=== PATIENT | female | born 1990 | race American Indian/Alaskan Native ===

== ENCOUNTER 2018-01-31 19:30 | Inpatient (IN) | payer MEDICAID, OTHER ==
[2018-01-31 21:03] LABS: BASO # 0.06 K/mm3 (0.0-2.0); BASO % 1.1 % (0.0-3.0); EOS # 0.4 (0.0-0.7); EOS % 7.6 % (1.5-5.0); GRAN # 2.48 (1.4-6.5); GRAN % 43.9 % (50.0-68.0); HEMOGLOBIN 11.8 g/dL (12.0-16.0); LYMPH # 2.1 (1.2-3.4); LYMPH % 36.9 % (22.0-35.0); MEAN CORPUSCULAR HEMOGLOBIN 29.6 pg (25.0-35.0); MONO # 0.6 (0.1-0.6); MONO % 10.5 % (1.0-6.0); RBC 3.99 10^6/uL (3.5-6.1); RED CELL DISTRIBUTION WIDTH 14.8 % (11.5-14.5); WHITE BLOOD COUNT 5.6 10^3/ul (4.5-11.0)
[2018-01-31 21:14] LABS: ACETAMINOPHEN < 10.0 ug/ml (10.0-20.0); SALICYLATE < 1 mg/dL (2.0-20.0)
[2018-01-31 21:16] LABS: ALB/GLOB RATIO 0.9 (1.1-1.8); ALBUMIN 3.5 g/dL (3.0-4.8); ALT/SGPT 39 U/L (7-56); AST/SGOT 32 U/L (14-36); BLOOD UREA NITROGEN 14 mg/dL (7-21); CALCIUM 8.8 mg/dL (8.4-10.5); GFR AFRICAN-AMERICAN > 60; GFR NON-AFRICAN AMERICAN > 60
--- NOTE | 2018-01-31 23:03 | ED PDOC ---
Arrival/HPI - General Chief Complaint: Psychiatric Evaluation Time Seen by Provider: 01/31/18 19:43 Historian: Patient - History of Present Illness Narrative History of Present Illness (Text): 01/31/18 23:01 27yo female with pmhx of bipolar bib EMS for psychiatric evaluation. Per EMS, patient was wandering the street without pants on and talking to herself. Patient states she was on her way from the park. States she wasn't talking to herself. She denies SI/HI, hallucination, any somatic complaint. Past Medical History - Provider Review Nursing Documentation Reviewed: Yes - Infectious Disease Hx of Infectious Diseases: None - Hematological/Oncological Other/Comment: alopecia - Integumentary Hx Eczema: Yes - Psychiatric Hx Bipolar Disorder: Yes Hx Substance Use: No - Anesthesia Hx Anesthesia: No Hx Anesthesia Reactions: No Hx Malignant Hyperthermia: No Family/Social History - Physician Review Nursing Documentation Reviewed: Yes Family/Social History: Unknown Family HX Smoking Status: Current Some Days Smoker Hx Alcohol Use: Yes Frequency of alcohol use: Socially Hx Substance Use: No Allergies/Home Meds Allergies/Adverse Reactions: Allergies pcn Allergy (Uncoded 01/31/18 19:54) RASH Review of Systems - Physician Review All systems were reviewed & negative as marked: Yes - Review of Systems Constitutional: Normal Eyes: Normal ENT: Normal Respiratory: Normal Cardiovascular: Normal Gastrointestinal: Normal Genitourinary Female: Normal Musculoskeletal: Normal Skin: Normal Neurological: Normal Endocrine: Normal Hemo/Lymphatic: Normal Psychiatric: Normal, Other (Psychiatric evaluation) Physical Exam Vital Signs Reviewed: Yes Vital Signs Temp Pulse Resp BP Pulse Ox 01/31/18 19:39 98.1 F 101 H 19 142/72 97 Temperature: Afebrile Blood Pressure: Normal Pulse: Regular Respiratory Rate: Normal Appearance: Positive for: Well-Appearing, Non-Toxic, Comfortable, Unkept Pain Distress: None Mental Status: Positive for: Alert and Oriented X 3 - Systems Exam Head: Present: Atraumatic, Normocephalic Pupils: Present: PERRL Extroacular Muscles: Present: EOMI Conjunctiva: Present: Normal Mouth: Present: Moist Mucous Membranes Neck: Present: Normal Range of Motion Respiratory/Chest: Present: Clear to Auscultation, Good Air Exchange. No: Respiratory Distress, Accessory Muscle Use Cardiovascular: Present: Regular Rate and Rhythm, Normal S1, S2. No: Murmurs Abdomen: No: Tenderness, Distention, Peritoneal Signs Back: Present: Normal Inspection Upper Extremity: Present: Normal Inspection. No: Cyanosis, Edema Lower Extremity: Present: Normal Inspection. No: Edema Neurological: Present: GCS=15, CN II-XII Intact, Speech Normal Skin: Present: Warm, Dry, Normal Color. No: Rashes Psychiatric: Present: Alert, Oriented x 3, Normal Insight, Normal Concentration Medical Decision Making ED Course and Treatment: 02/01/18 00:59 PT was calm in ED. She was hemodynamically stable. Medically cleared in ED for psych evaluation. EKG NSR @91bpm CXR NAD She was seen in ED by JUNIOR Barr. He DC with the psychiatrist and pt was admitted for bipolar. - Lab Interpretations Lab Results: 01/31/18 20:50 01/31/18 20:50 Lab Results 01/31/18 20:50: Alcohol, Quantitative < 10 01/31/18 20:50: Salicylates < 1 L, Acetaminophen < 10.0 L 01/31/18 20:50: Sodium 143, Potassium 4.0, Chloride 108 H, Carbon Dioxide 26, Anion Gap 13, BUN 14, Creatinine 0.7, Est GFR ( Amer) > 60, Est GFR (Non- Af Amer) > 60, Random Glucose 85, Calcium 8.8, Magnesium 2.3 H, Total Bilirubin 0.5, AST 32, ALT 39, Alkaline Phosphatase 61, Total Protein 7.3, Albumin 3.5, Globulin 3.7, Albumin/Globulin Ratio 0.9 L 01/31/18 20:50: WBC 5.6, RBC 3.99, Hgb 11.8 L, Hct 34.7 L, MCV 87.0, MCH 29.6, MCHC 34.0, RDW 14.8 H, Plt Count 264, MPV 10.0, Gran % 43.9 L, Lymph % (Auto) 36.9 H, Jennings % (Auto) 10.5 H, Eos % (Auto) 7.6 H, Baso % (Auto) 1.1, Gran # 2.48 , Lymph # (Auto) 2.1, [place] # (Auto) 0.6, Eos # (Auto) 0.4, Baso # (Auto) 0.06 Disposition/Present on Arrival - Present on Arrival Any Indicators Present on Arrival: No History of DVT/PE: No History of Uncontrolled Diabetes: No Urinary Catheter: No History of Decub. Ulcer: No History Surgical Site Infection Following: None - Disposition Have Diagnosis and Disposition been Completed?: Yes Diagnosis: Bipolar 1 disorder Disposition: HOSPITALIZED Disposition Time: 23:55 Patient Plan: Admission Patient Problems: Current Active Problems Problem Status Onset Bipolar 1 disorder Acute Condition: STABLE
[2018-02-01 01:34] LABS: URINE BILIRUBIN NEGATIVE (NEGATIVE); URINE BLOOD NEGATIVE (NEGATIVE); URINE GLUCOSE (UA) NEGATIVE (NEGATIVE); URINE LEUKOCYTE ESTERASE SMALL Leu/uL (NEGATIVE); URINE PROTEIN NEGATIVE mg/dL (<30 mg/dL); URINE UROBILINOGEN 0.2 E.U./dL (<1 E.U./dL)
[2018-02-01 01:37] LABS: URINE APPEARANCE CLOUDY (CLEAR); URINE COLOR YELLOW (YELLOW)
[2018-02-01 01:46] LABS: BARBITURATES, UR NEGATIVE (NEGATIVE)
[2018-02-01 02:07] LABS: BENZODIAZEPINES, UR NEGATIVE (NEGATIVE); OPIATES, UR NEGATIVE (NEGATIVE); PHENCYCLIDINE, UR NEGATIVE (NEGATIVE)
[2018-02-01 02:08] LABS: URINE BACTERIA MANY (NEG); URINE CALCIUM OXALATE CRYSTALS LARGE /hpf
[2018-02-01 03:44] VITALS: O2SAT 99
[2018-02-01] MEDS ORDERED: Magnesium Hydroxide Susp 30 ml UD PO PRN (04:24)
[2018-02-01 04:29] VITALS: RESP 20
--- NOTE | 2018-02-01 05:10 | PCM.BM ---
<Ghazal Bee - Last Filed: 02/01/18 05:08> Treatment Plan Problems - Problems identified on initial assessmt Medication nonadherence Date Initiated: 02/01/18 Time Initiated: 03:30 Assessment reference: NA Status: Active Priority: 1 Ineffective Impulse Control Date Initiated: 02/01/18 Time Initiated: 03:30 Assessment reference: NA Status: Active Priority: 2 Altered Sleep Patterns Date Initiated: 02/01/18 Time Initiated: 03:30 Assessment reference: NA Status: Active Priority: 3 Aggitated/Aggressive Behavion Date Initiated: 02/01/18 Time Initiated: 03:30 Assessment reference: NA Status: Active Priority: 4 Treatment assets and liabiliti Patient Assests: cooperative Patient Liabilities: financial problems, substance abuse - Milieu Protocol Maintain good personal hygiene: daily Encourage regular showers, daily Remind patient to perform daily oral care, daily Assist patient to perform ADL's Conduct patient checks and document Observation sheet: Q15 minutes Maintain personal safety: every shift Educate patient to report safety concerns to staff, every shift Monitor environment for contraband/sharps Medication safety: Monitor for expected outcome, potential side effects: every shift, Assess barriers to learning: every shift, Assess readiness for medication education: every shift Discharge/Continuing Care - Education Needs Education Needs: Patient Medication, Patient Diagnosis/Disease Process, Patient Coping Skills, Patient Community resources, Patient Health Practices/Safety, Patient Personal Hygiene/Grooming - Discharge Discharge Criteria: Tolerates medication w/o severe side effects, Free of agitation, Normal sleep pattern, Ability to care for self <Bárbara García - Last Filed: 02/01/18 12:54> - Diagnosis (1) Psychosis Status: Acute Interventions: 02/01/18 12:56 Psychoeducation/psychotherapy Psychopharmacology/adjustment of medications as needed/ monitoring possible side effects Evaluate pt on daily basis Compliance with medications and follow up appointments Long acting medication if pt is noncompliant with pill form Suicide and homicide risk assessment and prevention, coping strategies, safety plan Relapse prevention Reduction of symptoms Improve functional status Possible assertive community treatment Cognitive behavioral therapy Family involvement Possible social skill training as outpatient (2) Bipolar 1 disorder Status: Acute Interventions: 02/01/18 12:56 Psychoeducation Psychopharmacology/adjustment of medications as needed/ monitoring possible side effects Monitor blood level of mood stabilizers Evaluate pt on daily basis Compliance with medications and follow up appointments Suicide and homicide risk assessment and prevention, coping strategies, safety plan Relapse prevention Reduction of symptoms Improve functional status Family involvement As outpatient: cognitive behavioral therapy (3) Cocaine abuse Status: Acute Interventions: 02/01/18 12:55 Maintaining sobriety Relapse prevention Possible rehabilitation Motivational interviewing 12-step programs: AA meetings <Kamini Rodriguez - Last Filed: 02/01/18 15:52> Family Contact Family involvement: Famnasrin/SO not involved Family contact: Telephone contact initiated by staff Family contact name: Ella Lopez(mother) Family contacted how many times per week?: 2 <Jo-Ann Carrion - Last Filed: 02/06/18 15:49>
[2018-02-01 07:39] LABS: GLUCOSE,FASTING 71 mg/dL (65-110); HDL CHOLESTEROL 36 mg/dL (29-60)
[2018-02-01 07:52] LABS: LDL CHOLESTEROL 66 mg/dL (0-129)
--- NOTE | 2018-02-01 08:45 | RAD ---
Date of service: 02/01/2018 HISTORY: admission COMPARISON: No prior. FINDINGS: LUNGS: No active pulmonary disease. PLEURA: No significant pleural effusion identified, no pneumothorax apparent. CARDIOVASCULAR: Normal. OSSEOUS STRUCTURES: No significant abnormalities. VISUALIZED UPPER ABDOMEN: Normal. OTHER FINDINGS: None. IMPRESSION: No active disease.
--- NOTE | 2018-02-01 09:55 | PCM.PSYCH ---
<Pat Rueda - Last Filed: 02/01/18 13:16> Initial Psychiatric Evaluation - Initial Psychiatric Evaluation Type of Admission: Voluntary Legal Status: Capacity Chief Complaint (in patient's own words): I dont know ....(unintelligible speech). Patient's Reaction to Hospitalization: Patient was admitted to the psych unit for evaluation of bizarre behavior, including wandering the streets without pants or underwear and talking to herself. History of Present Illness and Precipitating Events: Faiza Lopez is a 27 yo female with a history of bipolar disorder who was brought to the ED by EMS for wandering the streets without pants or underwear on. According to records, the patient told the ER that she took off her pants because she was hot. She then later told the psych nurse that she removed them because she urinated in them. The patient was brought to the ED at [facility] 3 consecutive days earlier this month for bizarre behavior and was discharged each time with outpatient care. Records indicate the patient is homeless. The patient was seen in treatment team. She presents this morning very drowsy. Her speech is almost all unintelligible mumbling. The patient has her eyes closed for most of the interview. She is dressed in a hospital gown. She is bald. She is constantly scratching her arms and chest. She says its because she has eczema. She is able to state that she lives in [place] but took the bus to [place] to see a friend. She says she lives with her parents and does not see any doctors. She reports drinking a lot, the last time a few says ago. She also admits to marijuana and cocaine use, also both a few days ago. Of note, her UDS is positive for cocaine, and she appears to be in withdrawal. She denies taking any medications. Past psych hx: Bipolar disorder Patient reports one prior psych hospitalization 1-2 months ago in [place] PMH: eczema, asthma, allopecia FH: bipolar SH: Patient states she lives with parents in [place] Alcohol- a lot Marijuana Cocaine Denies tobacco use Vital Signs Temp Pulse Resp BP Pulse Ox 02/01/18 07:12 97.9 F 80 20 125/75 02/01/18 03:35 98.0 F 89 20 121/77 02/01/18 03:28 70 17 127/62 99 02/01/18 00:00 78 14 116/74 100 01/31/18 19:39 98.1 F 101 H 19 142/72 97 01/31/18 20:50 01/31/18 20:50 Lab Results 02/01/18 07:15: TSH 3rd Generation 0.37 L 02/01/18 07:15: Fasting Glucose 71, Triglycerides 83, Cholesterol 127 L, LDL Cholesterol Direct 66, HDL Cholesterol 36 02/01/18 01:10: Urine Opiates Screen Negative, Urine Methadone Screen Negative, Ur Barbiturates Screen Negative, Ur Phencyclidine Scrn Negative, Ur Amphetamines Screen Negative, U Benzodiazepines Scrn Negative, U Oth Cocaine Metabols Positive H, U Cannabinoids Screen Negative 02/01/18 01:10: Urine Color Yellow, Urine Appearance Cloudy, Urine pH 6.0, Ur Specific [place] >= 1.030, Urine Protein Negative, Urine Glucose (UA) Negative, Urine Ketones Trace H, Urine Blood Negative, Urine Nitrate Negative, Urine Bilirubin Negative, Urine Urobilinogen 0.2, Ur Leukocyte Esterase Small H, Urine RBC 1 - 3, Urine WBC 2 - 5, Ur Epithelial Cells 4 - 5, Calcium Oxalate Crystal Large, Urine Bacteria Many, Urine Other Mucus 01/31/18 20:50: Alcohol, Quantitative < 10 01/31/18 20:50: Salicylates < 1 L, Acetaminophen < 10.0 L 01/31/18 20:50: Sodium 143, Potassium 4.0, Chloride 108 H, Carbon Dioxide 26, Anion Gap 13, BUN 14, Creatinine 0.7, Est GFR ( Amer) > 60, Est GFR (Non- Af Amer) > 60, Random Glucose 85, Calcium 8.8, Magnesium 2.3 H, Total Bilirubin 0.5, AST 32, ALT 39, Alkaline Phosphatase 61, Total Protein 7.3, Albumin 3.5, Globulin 3.7, Albumin/Globulin Ratio 0.9 L 01/31/18 20:50: WBC 5.6, RBC 3.99, Hgb 11.8 L, Hct 34.7 L, MCV 87.0, MCH 29.6, MCHC 34.0, RDW 14.8 H, Plt Count 264, MPV 10.0, Gran % 43.9 L, Lymph % (Auto) 36.9 H, Perkins % (Auto) 10.5 H, Eos % (Auto) 7.6 H, Baso % (Auto) 1.1, Gran # 2.48 , Lymph # (Auto) 2.1, Perkins # (Auto) 0.6, Eos # (Auto) 0.4, Baso # (Auto) 0.06 Current Medications: Patient denies taking any medications. Active Medications Generic Name Dose Route Start Last Admin Trade Name Freq PRN Reason Stop Dose Admin Acetaminophen 650 mg 02/01/18 04:24 Tylenol 325mg Tab PO Q4 PRN Pain, moderate (4-7) Al Hydrox/Mg Hydrox/Simethicone 30 ml 02/01/18 04:24 Maalox Plus 30 Ml PO DAILY PRN Upset Stomach Lorazepam 2 mg 02/01/18 03:37 02/01/18 04:05 Ativan PO 2 mg Q6 PRN Administration anxiety, psychosis Protocol Lorazepam 2 mg 02/01/18 03:37 Ativan IM Q6 PRN severe agitation Protocol Magnesium Hydroxide 30 ml 02/01/18 04:24 Milk Of Magnesia PO DAILY PRN Constipation Ziprasidone 20 mg 02/01/18 03:37 02/01/18 04:05 Geodon Cap PO 20 mg Q6 PRN Administration anxiety, psychosis Protocol Ziprasidone 20 mg 02/01/18 03:37 Geodon Inj IM Q6 PRN severe agitation Protocol Zolpidem Tartrate 5 mg 02/01/18 03:37 Ambien PO HS PRN Insomnia Protocol Past Psychiatric History - Past Psychiatric History Prior Professional Help: unknown History of Abuse: unknown History of ETOH/Drug Use: alcohol, marijuana, cocaine History of Family Illness: unknown Pertinent Medical Hx (Current Medical&Sleep Prob, Allergies): Allergies Allergy/AdvReac Type Severity Reaction Status Date / Time Penicillins Allergy Verified 01/22/18 08:38 pcn Allergy RASH Uncoded 02/01/18 03:43 seafood Allergy RASH Uncoded 02/01/18 04:18 Albuterol HFA [Ventolin HFA 90 mcg/actuation (8 g)] 2 puff IH [id number] PRN #1 bottle 01/22/18 Docusate Sodium [Stool Softener] 100 mg PO PRN PRN 02/01/18 Polyvinyl Alcohol [Liquitears] 1 drop BOTHEYES DAILY 02/01/18 asthma Review of Systems - Review of Systems Systems not reviewed;Unavailable: Acuity of Condition - EENT Eyes: As Per HPI Ears: As Per HPI Nose/Mouth/Throat: As Per HPI - Cardiovascular Cardiovascular: As Per HPI - Respiratory Respiratory: As Per HPI - Gastrointestinal Gastrointestinal: As Per HPI - Genitourinary Genitourinary: As Per HPI - Musculoskeletal Musculoskeletal: As Par HPI - Integumentary Integumentary: As Per HPI - Neurological Neurological: As Per HPI - Psychiatric Psychiatric: As Per HPI - Endocrine Endocrine: As Per HPI - Hematologic/Lymphatic Hematologic: As Per HPI Mental Status Examination - Personal Presentation Personal Presentation: Looks older than stated age - Affect Affect: Blunted - Motor Activity Motor Activity: Calm, Psychomotor Retardation - Reliability in Providing Information Reliability in Providing Information: Poor, due to alteration in thoughts - Speech Speech: Disorganized, Incoherent - Mood Mood: Other ((unintelligible)) - Formal Thought Process Formal Thought Process: Other (concrete) - Obsessions/Compulsions Obsessions: No Compulsions: No - Cognitive Functions Orientation: Person, Place, Time Sensorium: Drowsy Attention/Concentration: Easily distracted Abstract Thinking: [place] Estimate of Intelligence: Below average Judgement: Imparied, as evidence by: Poor judgement, Imparied, as evidence by: Lack of insight into illness Memory: Recent impaired, as evidence by: Inability to recall events of the day, Remote impaired as evidenced by: Inability to recall sig life events - Risk Risk: Withdrawal (cocaine) - Strength & Assets Inventory Strength & Assets Inventory: Family support (?parents) - Limitations Additional comments: homelessness, poor historian, polysubstance us, untreated mental illness DSM 5 DX - DSM 5 DSM 5 Diagnosis: Bipolar disorder Alcohol use disorder Cocaine use disorder - r/o substance-induced psychosis (cocaine) - r/o schizophrenia - r/o schizoaffective - r/o catatonia - Recommended/Plan of Treatment Treatment Recommendations and Plan of Treatment: 1. Risperdal 0.5 mg bid for psychosis 2. Ativan 0.5 mg bid for catatonic symptoms 3. Ativan 2 mg q6hrs prn for agitation/psychosis 4. Geodon 20 mg q6hrs for agitation/psychosis 5. Ambien 5 mg prn qhs 6. Hospitalist consult for eczema and asthma 7. Milieu and group therapy 8. Social work consult for social issues and discharge planning 9. Family involvement (?parents) Attempted to educate the patient about risk/benefits and alternatives of medications, coping strategies (safety plan, suicide prevention), relapse prevention, importance of follow up with psychiatrist and therapist, stay away from drugs/alcohol/smoking, but the patient had limited understanding. Projected ELOS: 7 days Prognosis: fair Discharge Plan and Discharge Criteria: Patient will be not depressed or manic, will be more hopeful, will be not psychotic or anxious, will be not having thoughts of harming self or others, will be tolerating medications well, will not have major side effects, will be able to function, will not pose threat to self or others. - Smoking Cessation Smoking Cessation Initiated: No Reason for not providing: patient denied tobacco use <Bárbara García - Last Filed: 02/01/18 14:27> Initial Psychiatric Evaluation - Initial Psychiatric Evaluation Type of Admission: Voluntary Legal Status: Capacity (Patient has capacity to sign consent for treatment) Chief Complaint (in patient's own words): patient presented with psychomotor retardation, difficulties to express herself , patient has tendency of mumbling and staring at this report writer and treatment team Patient's Reaction to Hospitalization: patient was admitted for disorganized thoughts and behavior in community, patient was brought in by police. History of Present Illness and Precipitating Events: shortly patient is 27 years old -[place] female with unknown previous psychiatric history, patient has multiple emergency room visits, including [facility] emergency room 01/22/18, 01/23/18 patient was brought in by police patient tried to smoke grass on the floor, patient was discharged from the emergency room back then. this time patient was brought in by police because patient was wandering in streets, was no close on, in the emergency room patient presented to be disorganized, psychotic, did not make any sense, at the same time patient was able to comprehend basic information about admission as well as treatment plan. fair ADL during the treatment team meeting patient presented with poor personal hygiene, patient completely bald, seems to have alopecia, patient also has eczema and was scratching herself constantly during the interview. patient also presented with psychomotor retardation, patient has tendency to mumble something incoherently, patient very hard to interview. patient reported 1 previous psych admission, about 1-2 months ago in [place] on a psychiatric unit. but was not able to provide any history about medications what she was taking. Patient reported that she has history of bipolar disorder, denied visual, auditory, tactile hallucinations. medical history significant for asthma and eczema. We'll call medical consultation. PT reports smoking marijuana and drinks alcohol. PT reports her last drink was 2 -3 days ago. Current Medications: Active Medications Generic Name Dose Route Start Last Admin Trade Name Freq PRN Reason Stop Dose Admin Acetaminophen 650 mg 02/01/18 04:24 02/01/18 12:25 Tylenol 325mg Tab PO 650 mg Q4 PRN Administration Pain, moderate (4-7) Al Hydrox/Mg Hydrox/Simethicone 30 ml 02/01/18 04:24 Maalox Plus 30 Ml PO DAILY PRN Upset Stomach Albuterol/Ipratropium 3 ml 02/01/18 14:00 Duoneb 3 Mg/0.5 Mg (3 Ml) Ud IH [id number] CHRISTOPHER Hydrocortisone 0 gm 02/01/18 16:00 Cortizone 1% Oint TOP BID CHRISTOPHER Lorazepam 2 mg 02/01/18 03:37 02/01/18 04:05 Ativan PO 2 mg Q6 PRN Administration anxiety, psychosis Protocol Lorazepam 2 mg 02/01/18 03:37 Ativan IM Q6 PRN severe agitation Protocol Lorazepam 0.5 mg 02/01/18 16:00 Ativan PO BID CHRISTOPHER Protocol Lorazepam 0.5 mg 02/01/18 22:00 Ativan PO HS CHRISTOPHER Protocol Magnesium Hydroxide 30 ml 02/01/18 04:24 Milk Of Magnesia PO DAILY PRN Constipation Multivitamins/Minerals 1 tab 02/02/18 08:00 Therapeutic-M Tab PO 0800 CHRISTOPHER Risperidone 0.5 mg 02/01/18 16:00 Risperdal Tab PO BID CHRISTOPHER Protocol Risperidone 0.5 mg 02/01/18 22:00 Risperdal Tab PO HS CHRISTOPHER Protocol Ziprasidone 20 mg 02/01/18 03:37 02/01/18 04:05 Geodon Cap PO 20 mg Q6 PRN Administration anxiety, psychosis Protocol Ziprasidone 20 mg 02/01/18 03:37 Geodon Inj IM Q6 PRN severe agitation Protocol Zolpidem Tartrate 5 mg 02/01/18 03:37 Ambien PO HS PRN Insomnia Protocol Past Psychiatric History - Past Psychiatric History Previous Treatment History: Inpatient Prior Professional Help: see HPI Prior Psychiatric Treatment: see HPI At what hospital: see HPI Duration: see HPI Explanation of prior treatment: see HPI see HPI Pertinent Medical Hx (Current Medical&Sleep Prob, Allergies): Allergies Allergy/AdvReac Type Severity Reaction Status Date / Time Penicillins Allergy Verified 01/22/18 08:38 pcn Allergy RASH Uncoded 02/01/18 03:43 seafood Allergy RASH Uncoded 02/01/18 04:18 Albuterol HFA [Ventolin HFA 90 mcg/actuation (8 g)] 2 puff IH [id number] PRN #1 bottle 01/22/18 Docusate Sodium [Stool Softener] 100 mg PO PRN PRN 02/01/18 Polyvinyl Alcohol [Liquitears] 1 drop BOTHEYES DAILY 02/01/18 Review of Systems - Review of Systems Systems not reviewed;Unavailable: Acuity of Condition - EENT Eyes: As Per HPI Ears: As Per HPI Nose/Mouth/Throat: As Per HPI - Breasts Breasts: As Per HPI - Cardiovascular Cardiovascular: As Per HPI - Respiratory Respiratory: As Per HPI - Gastrointestinal Gastrointestinal: As Per HPI - Genitourinary Genitourinary: As Per HPI - Reproductive: Female Reproductive:Female: As Per HPI - Menstruation Menstruation: As Per HPI - Musculoskeletal Musculoskeletal: As Par HPI - Integumentary Integumentary: As Per HPI - Neurological Neurological: As Per HPI - Psychiatric Psychiatric: As Per HPI - Endocrine Endocrine: As Per HPI - Hematologic/Lymphatic Hematologic: As Per HPI Mental Status Examination - Personal Presentation Personal Presentation: Looks older than stated age - Affect Affect: Constricted, Blunted - Motor Activity Motor Activity: Calm, Psychomotor Retardation - Reliability in Providing Information Reliability in Providing Information: Poor, due to alteration in thoughts - Speech Speech: Disorganized, Incoherent - Mood Mood: Other - Formal Thought Process Formal Thought Process: Other - Hallucinations/Delusions Hallucinations: Visual - Obsessions/Compulsions Obsessions: No Compulsions: No - Cognitive Functions Orientation: Person, Place, Time Sensorium: Drowsy Attention/Concentration: Easily distracted Abstract Thinking: [place] Estimate of Intelligence: Below average Judgement: Imparied, as evidence by: Poor judgement, Imparied, as evidence by: Lack of insight into illness Memory: Recent impaired, as evidence by: Inability to recall events of the day, Remote impaired as evidenced by: Inability to recall sig life events - Risk Risk: Withdrawal, Diminished functioning, Other (substances abuse, disorganized thoughts and behavior) - Strength & Assets Inventory Strength & Assets Inventory: Family support, Cooperative - Limitations Limitations: Other (multiple medical issues, so organized thoughts and behavior) DSM 5 DX - DSM 5 DSM 5 Diagnosis: psychosis NOS Substance-induced psychosis
--- NOTE | 2018-02-01 14:22 | CP.PCM.CON ---
<Heaven Beltrán - Last Filed: 02/01/18 14:47> History of Present Illness - History of Present Illness History of Present Illness: HEAVEN BELTRÁN DO - PGY1 [facility] - HOSPITAL MEDICINE CONSULT NOTE Pt. is a 27F w/ a PMH of asthma, eczema, and alopecia. Psych hx positive for Bipolar disorder. She was found wandering streets w/o clothes and admitted to psych unit for bizarre behavior. Hospital medicine was consulted due to patient having complaints of scratching all over her body with a history of asthma/ eczema. Pt was seen this afternoon at bedside, she voiced no complaints of itching, sob , cough, cp, palp, abd pain, nvdc. She stated that she does have medication for asthma and cream for eczema however could not recall the names of the medications or her PCP. She stated she has had a prior asthma attack but has never been hospitalized or intubated. Pt. was somnolent throughout evaluation. PMH: asthma, eczema, alopecia PSH: N/A PsyH: Bipolar disorder Social: EtOH - last drink 1 wk ago, active smoker, marijuana, cocaine Review of Systems - Cardiovascular Cardiovascular: absent: Chest Pain, Dyspnea - Respiratory Respiratory: absent: Cough, Dyspnea, Wheezing - Gastrointestinal Gastrointestinal: absent: Abdominal Pain, Constipation, Diarrhea, Nausea, Vomiting - Menstruation Additional comments: Regular period/ Normal cycle - Integumentary Integumentary: Alopecia Past Patient History - Infectious Disease Hx of Infectious Diseases: None - Tetanus Immunizations Tetanus Immunization: Unknown - Past Medical History & Family History Past Medical History?: Yes Pertinent Family History: Asthma, Eczema, ALopecia - Past Social History Smoking Status: Current Some Days Smoker Alcohol: Occasional Drugs: Cannabis, Cocaine Home Situation {Lives}: With Family (as per patient) - CARDIAC Hx Cardiac Disorders: No Hx Hypertension: No - PULMONARY Hx Asthma: Yes Hx Tuberculosis: No - NEUROLOGICAL HX Cerebrovascular Accident: No Hx Seizures: No - HEENT Hx HEENT Problems: No - RENAL Hx Chronic Kidney Disease: No - ENDOCRINE/METABOLIC Hx Endocrine Disorders: No - HEMATOLOGICAL/ONCOLOGICAL Other/Comment: alopecia - INTEGUMENTARY Hx Eczema: Yes - MUSCULOSKELETAL/RHEUMATOLOGICAL Hx Musculoskeletal Disorders: No - GASTROINTESTINAL Hx Gastrointestinal Disorders: No - GENITOURINARY/GYNECOLOGICAL Hx Sexually Transmitted Disorders: No - PSYCHIATRIC Hx Bipolar Disorder: Yes Hx Substance Use: No - SURGICAL HISTORY Hx Surgeries: No - ANESTHESIA Hx Anesthesia: No Hx Anesthesia Reactions: No Hx Malignant Hyperthermia: No Meds Allergies/Adverse Reactions: Allergies Allergy/AdvReac Type Severity Reaction Status Date / Time Penicillins Allergy RASH Verified 02/02/18 00:37 pcn Allergy RASH Uncoded 02/02/18 00:37 seafood Allergy RASH Uncoded 02/02/18 00:37 - Medications Medications: Current Medications Acetaminophen (Tylenol 325mg Tab) 650 mg PO Q4 PRN PRN Reason: Pain, moderate (4-7) Last Admin: 02/01/18 12:25 Dose: 650 mg Al Hydrox/Mg Hydrox/Simethicone (Maalox Plus 30 Ml) 30 ml PO DAILY PRN PRN Reason: Upset Stomach Albuterol/Ipratropium (Duoneb 3 Mg/0.5 Mg (3 Ml) Ud) 3 ml IH [id number] CHRISTOPHER Hydrocortisone (Cortizone 1% Oint) 0 gm TOP BID CHRISTOPHER Lorazepam (Ativan) 2 mg PO Q6 PRN; Protocol PRN Reason: anxiety, psychosis Last Admin: 02/01/18 04:05 Dose: 2 mg Lorazepam (Ativan) 2 mg IM Q6 PRN; Protocol PRN Reason: severe agitation Lorazepam (Ativan) 0.5 mg PO BID CHRISTOPHER PRN Reason: Protocol Lorazepam (Ativan) 0.5 mg PO HS CHRISTOPHER PRN Reason: Protocol Magnesium Hydroxide (Milk Of Magnesia) 30 ml PO DAILY PRN PRN Reason: Constipation Multivitamins/Minerals (Therapeutic-M Tab) 1 tab PO 0800 CHRISTOPHER Risperidone (Risperdal Tab) 0.5 mg PO BID CHRISTOPHER PRN Reason: Protocol Risperidone (Risperdal Tab) 0.5 mg PO HS CHRISTOPHER PRN Reason: Protocol Ziprasidone (Geodon Cap) 20 mg PO Q6 PRN; Protocol PRN Reason: anxiety, psychosis Last Admin: 02/01/18 04:05 Dose: 20 mg Ziprasidone (Geodon Inj) 20 mg IM Q6 PRN; Protocol PRN Reason: severe agitation Zolpidem Tartrate (Ambien) 5 mg PO HS PRN; Protocol PRN Reason: Insomnia Physical Exam - Constitutional Appears: Non-toxic, Older Than Stated Age, Agitated - Head Exam Head Exam: ATRAUMATIC Additional comments: No eyebrows, no hair - Eye Exam Eye Exam: EOMI, Normal appearance. absent: Scleral icterus - ENT Exam ENT Exam: Mucous Membranes Dry - Respiratory Exam Respiratory Exam: Wheezes (Very minimal diffuse across all lung schaffer ), NORMAL BREATHING PATTERN - Cardiovascular Exam Cardiovascular Exam: REGULAR RHYTHM, RRR, +S1, +S2 - Extremities Exam Additional comments: Some eczema patches / dry flaking skin in L lower extremity - Neurological Exam Additional comments: Somnolent - Psychiatric Exam Psychiatric exam: Agitated - Skin Skin Exam: Dry, Intact, Warm Results - Vital Signs Recent Vital Signs: Last Vital Signs Temp 97.9 F 02/01/18 07:12 Pulse 80 02/01/18 07:12 Resp 20 02/01/18 07:12 BP 125/75 02/01/18 07:12 Pulse Ox 99 02/01/18 03:28 - Labs Result Diagrams: 01/31/18 20:50 01/31/18 20:50 Labs: Laboratory Results - last 24 hr 02/01/18 02/01/18 02/01/18 01:10 01:10 07:15 Fasting Glucose 71 Triglycerides 83 Cholesterol 127 L LDL Cholesterol Direct 66 HDL Cholesterol 36 TSH 3rd Generation Urine Color Yellow Urine Appearance Cloudy Urine pH 6.0 Ur Specific [place] >= 1.030 Urine Protein Negative Urine Glucose (UA) Negative Urine Ketones Trace H Urine Blood Negative Urine Nitrate Negative Urine Bilirubin Negative Urine Urobilinogen 0.2 Ur Leukocyte Esterase Small H Urine RBC 1 - 3 Urine WBC 2 - 5 Ur Epithelial Cells 4 - 5 Calcium Oxalate Crystal Large Urine Bacteria Many Urine Other Mucus Urine Opiates Screen Negative Urine Methadone Screen Negative Ur Barbiturates Screen Negative Ur Phencyclidine Scrn Negative Ur Amphetamines Screen Negative U Benzodiazepines Scrn Negative U Oth Cocaine Metabols Positive H U Cannabinoids Screen Negative 02/01/18 07:15 Fasting Glucose Triglycerides Cholesterol LDL Cholesterol Direct HDL Cholesterol TSH 3rd Generation 0.37 L Urine Color Urine Appearance Urine pH Ur Specific [place] Urine Protein Urine Glucose (UA) Urine Ketones Urine Blood Urine Nitrate Urine Bilirubin Urine Urobilinogen Ur Leukocyte Esterase Urine RBC Urine WBC Ur Epithelial Cells Calcium Oxalate Crystal Urine Bacteria Urine Other Urine Opiates Screen Urine Methadone Screen Ur Barbiturates Screen Ur Phencyclidine Scrn Ur Amphetamines Screen U Benzodiazepines Scrn U Oth Cocaine Metabols U Cannabinoids Screen Assessment & Plan (1) Asthma Status: Chronic Priority: Medium (2) Eczema Status: Chronic Priority: Medium (3) Abnormal TSH Status: Acute Priority: Low (4) Alopecia Status: Chronic Priority: Low - Assessment and Plan (Free Text) Assessment: 27F with a PMH of Asthma, eczema, alopeica, and a past psych history of bipolar disorder admitted to behavioral unit for bizarre behavior. Hospital medicine consulted for patient having complaints of itchiness and scratching during evaluation by behavioral health team this AM. Plan: Asthma Minimal wheezes heard diffusely throughout lung schaffer. Pt denies any cough/sob or wheezing. Will start Albuterol INH Q6 PRN Eczema Small patches appreciated on LLE; Apply topical corticoid steroid PRN Hydroxyzine for pruritus PRN Low TSH Clinically asymptomatic Follow up T4 If nl repeat TSH within 6 weeks Alopecia Chronic since age of [age] No changes at this time Can follow up as outpt. Patient is cleared from a medical standpoint, Please re-consult as needed. Patient was seen and discussed at length with attending physician Dr. Navarro. Heaven Beltrán DO - PGY1 [employer]ician - Medicine Consult Note - Date & Time Date: 02/01/18 Time: 14:43 <Samia Navarro - Last Filed: 02/02/18 14:20> Meds - Medications Medications: Current Medications Acetaminophen (Tylenol 325mg Tab) 650 mg PO Q4 PRN PRN Reason: Pain, moderate (4-7) Last Admin: 02/02/18 10:23 Dose: 650 mg Al Hydrox/Mg Hydrox/Simethicone (Maalox Plus 30 Ml) 30 ml PO DAILY PRN PRN Reason: Upset Stomach Albuterol/Ipratropium (Duoneb 3 Mg/0.5 Mg (3 Ml) Ud) 3 ml IH [id number] [facility] Last Admin: 02/02/18 13:02 Dose: Not Given Hydrocortisone (Cortizone 1% Oint) 0 gm TOP BID [facility] Last Admin: 02/02/18 08:47 Dose: 1 applic Hydroxyzine HCl (Atarax) 10 mg PO QID [facility] Last Admin: 02/02/18 12:32 Dose: 10 mg Lorazepam (Ativan) 2 mg PO Q6 PRN; Protocol PRN Reason: anxiety, psychosis Last Admin: 02/02/18 12:32 Dose: 2 mg Lorazepam (Ativan) 2 mg IM Q6 PRN; Protocol PRN Reason: severe agitation Lorazepam (Ativan) 0.5 mg PO BID CHRISTOPHER PRN Reason: Protocol Last Admin: 02/02/18 08:08 Dose: 0.5 mg Lorazepam (Ativan) 0.5 mg PO HS CHRISTOPHER PRN Reason: Protocol Last Admin: 02/01/18 21:50 Dose: 0.5 mg Magnesium Hydroxide (Milk Of Magnesia) 30 ml PO DAILY PRN PRN Reason: Constipation Multivitamins/Minerals (Therapeutic-M Tab) 1 tab PO 0800 CHRISTOPHER Last Admin: 02/02/18 08:08 Dose: 1 tab Risperidone (Risperdal Tab) 0.5 mg PO BID CHRISTOPHER PRN Reason: Protocol Last Admin: 02/02/18 08:08 Dose: 0.5 mg Risperidone (Risperdal Tab) 0.5 mg PO HS CHRISTOPHER PRN Reason: Protocol Last Admin: 02/01/18 21:50 Dose: 0.5 mg Ziprasidone (Geodon Cap) 20 mg PO Q6 PRN; Protocol PRN Reason: anxiety, psychosis Last Admin: 02/01/18 04:05 Dose: 20 mg Ziprasidone (Geodon Inj) 20 mg IM Q6 PRN; Protocol PRN Reason: severe agitation Zolpidem Tartrate (Ambien) 5 mg PO HS PRN; Protocol PRN Reason: Insomnia Results - Vital Signs Recent Vital Signs: Last Vital Signs Temp 98.0 F 02/02/18 06:55 Pulse 76 02/02/18 06:55 Resp 20 02/02/18 06:55 BP 126/76 02/02/18 06:55 Pulse Ox 99 02/01/18 03:28 - Labs Result Diagrams: 01/31/18 20:50 01/31/18 20:50 Labs: Laboratory Results - last 24 hr 02/01/18 02/01/18 07:15 07:15 Thyroxine (T4) 7.7 RPR Nonreactive Attending/Attestation - Attestation I have personally seen and examined this patient.: Yes I have fully participated in the care of the patient.: Yes I have reviewed all pertinent clinical information: Yes Notes (Text): 02/02/18 14:14 Patient was seen and examined with medical technician assistant. 27F with a PMH of Asthma, eczema, alopeica, and a past psych history of bipolar disorder admitted to behavioral unit for bizarre behavior. Asthma is stable, patient is not dyspnic, on room air, continue PRN Albuterol. Subclinical hyperthyroidism, TSH is low but T4 and T 3 are normal, will need repeat Thyroid function test in 6-8 weeks. H/O eczema, patient is not having itching, hydroxyzine can be used on PRN basis for itching, topical steroid for rash, will need out patient dermatology follow up. There is no active medical issue at this time.We will sign off. Please call us back if any question.
[2018-02-01] MEDS: Albuterol-Ipratrop 3 mg / 0.5 (3 ml) UD IH SCH ×2 (15:37→20:00)
--- NOTE | 2018-02-01 20:18 | CARD ---
APPROVED REPORT Date of service: 01/31/2018 EKG Measurement Heart [id number] <Conclusion> Normal sinus rhythm Normal ECG
[2018-02-02] MEDS: Albuterol-Ipratrop 3 mg / 0.5 (3 ml) UD IH SCH ×3 (07:19→20:36)
[2018-02-02] MEDS: Multivitamin With Minerals Tab PO SCH (08:08)
--- NOTE | 2018-02-02 14:50 | PCM.PYCHPN ---
Psychiatric Progress Note - Psychiatric Progress Note Patient seen today, length of contact: 30 minutes Patient Chief Complaint: "I feel better, when I can go home?" Problems Identified/Issues Discussed: Suicide/ homicide prevention, past psychiatric h/o, current psychiatric symptoms , medical problems, risk/benefits and alternatives of medications, medications compliance, coping strategies, substance abuse h/o, relapse prevention, importance of follow up with psychiatrist and therapist, discharge plan. Medical Problems: patient has eczema as well as asthma Diagnostic Results: 01/31/18 20:50 01/31/18 20:50 Lab Results 02/01/18 07:15: Thyroxine (T4) 7.7 02/01/18 07:15: RPR Nonreactive 02/01/18 07:15: TSH 3rd Generation 0.37 L 02/01/18 07:15: Fasting Glucose 71, Triglycerides 83, Cholesterol 127 L, LDL Cholesterol Direct 66, HDL Cholesterol 36 02/01/18 01:10: Urine Opiates Screen Negative, Urine Methadone Screen Negative, Ur Barbiturates Screen Negative, Ur Phencyclidine Scrn Negative, Ur Amphetamines Screen Negative, U Benzodiazepines Scrn Negative, U Oth Cocaine Metabols Positive H, U Cannabinoids Screen Negative 02/01/18 01:10: Urine Color Yellow, Urine Appearance Cloudy, Urine pH 6.0, Ur Specific [place] >= 1.030, Urine Protein Negative, Urine Glucose (UA) Negative, Urine Ketones Trace H, Urine Blood Negative, Urine Nitrate Negative, Urine Bilirubin Negative, Urine Urobilinogen 0.2, Ur Leukocyte Esterase Small H, Urine RBC 1 - 3, Urine WBC 2 - 5, Ur Epithelial Cells 4 - 5, Calcium Oxalate Crystal Large, Urine Bacteria Many, Urine Other Mucus 01/31/18 20:50: Alcohol, Quantitative < 10 01/31/18 20:50: Salicylates < 1 L, Acetaminophen < 10.0 L 01/31/18 20:50: Sodium 143, Potassium 4.0, Chloride 108 H, Carbon Dioxide 26, Anion Gap 13, BUN 14, Creatinine 0.7, Est GFR ( Amer) > 60, Est GFR (Non- Af Amer) > 60, Random Glucose 85, Calcium 8.8, Magnesium 2.3 H, Total Bilirubin 0.5, AST 32, ALT 39, Alkaline Phosphatase 61, Total Protein 7.3, Albumin 3.5, Globulin 3.7, Albumin/Globulin Ratio 0.9 L 01/31/18 20:50: WBC 5.6, RBC 3.99, Hgb 11.8 L, Hct 34.7 L, MCV 87.0, MCH 29.6, MCHC 34.0, RDW 14.8 H, Plt Count 264, MPV 10.0, Gran % 43.9 L, Lymph % (Auto) 36.9 H, [place] % (Auto) 10.5 H, Eos % (Auto) 7.6 H, Baso % (Auto) 1.1, Gran # 2.48 , Lymph # (Auto) 2.1, [place] # (Auto) 0.6, Eos # (Auto) 0.4, Baso # (Auto) 0.06 Vital Signs Temp Pulse Resp BP Pulse Ox 02/02/18 06:55 98.0 F 76 20 126/76 02/01/18 16:00 86 140/95 H 02/01/18 13:25 97.5 F L 02/01/18 07:12 97.9 F 80 20 125/75 02/01/18 03:35 98.0 F 89 20 121/77 02/01/18 03:28 70 17 127/62 99 02/01/18 00:00 78 14 116/74 100 01/31/18 19:39 98.1 F 101 H 19 142/72 97 DSM 5 Symptoms Update: shortly patient is 27 years old -[place] female with unknown previous psychiatric history, patient has multiple emergency room visits, including [place] emergency room 01/22/18, 01/23/18 patient was brought in by police patient tried to smoke grass on the floor, patient was discharged from the emergency room back then. this time patient was brought in by police because patient was wandering in streets, was no close on, in the emergency room patient presented to be disorganized, psychotic, did not make any sense, at the same time patient was able to comprehend basic information about admission as well as treatment plan. fair ADL. patient was seen next to the nursing station today, hygiene is improving, patient is more coherent, speech is more fluent, catatonia is improved. Patient obviously has some cognitive limitations, possible borderline intellectual functioning, patient still presented to be disorganized, giggling inappropriately at times, but there is mild improvement for the patient presentation. Patient was seen by medical team, consultation appreciated, please see notes for more detailed information As per staff patient is compliant with the medications, no side effects observed or reported, no behavioral issues.aims 0, no EPS. impression: Psychosis NOS Rule out schizoaffective disorder Rule out substance-induced psychosis Medication Change: Yes (Risperdal increased at the nighttime) Medical Record Reviewed: Yes Consults ordered or reviewed: medical consultation appreciated Mental Status Examination - Cognitive Function Orientation: Person, Place, Time Memory: Impaired Attention: Poor Concentration: Poor Association: Loose Fund of Knowledge: Poor - Mood Mood: Depressed, Other - Affect Affect: Constricted (but more reactive) - Speech Speech: Appropriate (but patient still talks with monotonic and low volume speech) - Formal Thought Process Formal Thought Process: Other (disorganized thoughts and disorganized behavior) - Suicidal Ideation Suicidal Ideation: No - Homicidal Ideation Homicidal Ideation: No Goal/Treatment Plan - Goal/Treatment Plan Need for Continued Stay: Remain at risks for inpatient hospitalization, Severe depression anxiety, Discharge may exacerbated symptoms, Severe functional impairment Progress Toward Problem(s) and Goals/Treatment Plan: 1. Risperdal 0.5 mg bid 1 mg at the nighttimefor psychosis 2. Ativan 0.5 mg bid for catatonic symptoms 3. Ativan 2 mg q6hrs prn for agitation/psychosis 4. Geodon 20 mg q6hrs for agitation/psychosis 5. Ambien 5 mg prn qhs 6. Hospitalist consult for eczema and asthma appreciated 7. Milieu and group therapy 8. Social work consult for social issues and discharge planning 9. Family involvement (?parents) Attempted to educate the patient about risk/benefits and alternatives of medications, coping strategies (safety plan, suicide prevention), relapse prevention, importance of follow up with psychiatrist and therapist, stay away from drugs/alcohol/smoking, but the patient had limited understanding. Estimated Date of D/C: 02/06/18
[2018-02-03] MEDS: Albuterol-Ipratrop 3 mg / 0.5 (3 ml) UD IH SCH ×4 (01:24→20:40)
[2018-02-03] MEDS: Multivitamin With Minerals Tab PO SCH (08:45)
--- NOTE | 2018-02-03 13:32 | PCM.PYCHPN ---
<Pat Rueda - Last Filed: 02/03/18 13:47> Psychiatric Progress Note - Psychiatric Progress Note Patient seen today, length of contact: 30 minutes Patient Chief Complaint: Im ok. Is it time for medicine yet? Problems Identified/Issues Discussed: Suicide/ homicide prevention, past psychiatric h/o, current psychiatric symptoms , medical problems, risk/benefits and alternatives of medications, medications compliance, coping strategies, substance abuse h/o, relapse prevention, importance of follow up with psychiatrist and therapist, discharge plan. Medical Problems: eczema, asthma, allopecia Diagnostic Results: Vital Signs Temp Pulse Resp BP Pulse Ox 02/03/18 06:55 98.5 F 81 20 116/78 02/02/18 16:00 92 H 136/82 02/02/18 06:55 98.0 F 76 20 126/76 02/01/18 16:00 86 140/95 H 02/01/18 13:25 97.5 F L 02/01/18 07:12 97.9 F 80 20 125/75 02/01/18 03:35 98.0 F 89 20 121/77 02/01/18 03:28 70 17 127/62 99 02/01/18 00:00 78 14 116/74 100 01/31/18 19:39 98.1 F 101 H 19 142/72 97 01/31/18 20:50 01/31/18 20:50 Lab Results 02/01/18 07:15: Thyroxine (T4) 7.7 02/01/18 07:15: RPR Nonreactive 02/01/18 07:15: TSH 3rd Generation 0.37 L 02/01/18 07:15: Fasting Glucose 71, Triglycerides 83, Cholesterol 127 L, LDL Cholesterol Direct 66, HDL Cholesterol 36 02/01/18 01:10: Urine Opiates Screen Negative, Urine Methadone Screen Negative, Ur Barbiturates Screen Negative, Ur Phencyclidine Scrn Negative, Ur Amphetamines Screen Negative, U Benzodiazepines Scrn Negative, U Oth Cocaine Metabols Positive H, U Cannabinoids Screen Negative 02/01/18 01:10: Urine Color Yellow, Urine Appearance Cloudy, Urine pH 6.0, Ur Specific [place] >= 1.030, Urine Protein Negative, Urine Glucose (UA) Negative, Urine Ketones Trace H, Urine Blood Negative, Urine Nitrate Negative, Urine Bilirubin Negative, Urine Urobilinogen 0.2, Ur Leukocyte Esterase Small H, Urine RBC 1 - 3, Urine WBC 2 - 5, Ur Epithelial Cells 4 - 5, Calcium Oxalate Crystal Large, Urine Bacteria Many, Urine Other Mucus 01/31/18 20:50: Alcohol, Quantitative < 10 01/31/18 20:50: Salicylates < 1 L, Acetaminophen < 10.0 L 01/31/18 20:50: Sodium 143, Potassium 4.0, Chloride 108 H, Carbon Dioxide 26, Anion Gap 13, BUN 14, Creatinine 0.7, Est GFR ( Amer) > 60, Est GFR (Non- Af Amer) > 60, Random Glucose 85, Calcium 8.8, Magnesium 2.3 H, Total Bilirubin 0.5, AST 32, ALT 39, Alkaline Phosphatase 61, Total Protein 7.3, Albumin 3.5, Globulin 3.7, Albumin/Globulin Ratio 0.9 L 01/31/18 20:50: WBC 5.6, RBC 3.99, Hgb 11.8 L, Hct 34.7 L, MCV 87.0, MCH 29.6, MCHC 34.0, RDW 14.8 H, Plt Count 264, MPV 10.0, Gran % 43.9 L, Lymph % (Auto) 36.9 H, [place] % (Auto) 10.5 H, Eos % (Auto) 7.6 H, Baso % (Auto) 1.1, Gran # 2.48 , Lymph # (Auto) 2.1, [place] # (Auto) 0.6, Eos # (Auto) 0.4, Baso # (Auto) 0.06 DSM 5 Symptoms Update: Faiza Lopez is a 27 yo female with a history of bipolar disorder who was brought to the ED by EMS for wandering the streets without pants or underwear on. According to records, the patient told the ER that she took off her pants because she was hot. She then later told the psych nurse that she removed them because she urinated in them. The patient was brought to the ED at [facility] 3 consecutive days earlier this month for bizarre behavior and was discharged each time with outpatient care. Records indicate the patient is homeless. Her UDS was positive for cocaine. The patient was seen today by the nurses station. She presents improved with more linear and coherent speech. She is dressed in casual clothing with fair grooming/hygiene. She is unable to communicate much about how she is feeling or why she is in the hospital- poor insight and low intellectual functioning. The patient has been more visible in the milieu but tends to keep to herself. Her sleep and appetite are good. She is compliant with medications and tolerating them well without side effects. She is working with DOLORES Suárez for follow-up care (see SW note for details). The patients urine culture grew MRSA. The hospitalist was called, and the patient is asymptomatic and does not need to be on antibiotics. The patient is a carrier but does not need any type of isolation (ie. can be in double room, no contact isolation). Medication Change: No Medical Record Reviewed: Yes Consults ordered or reviewed: medicine Mental Status Examination - Cognitive Function Orientation: Person, Place, Time Memory: Impaired Attention: Poor (but improved from admission) Concentration: Poor (but improved from admission) Association: WNL Fund of Knowledge: Poor Decription of patient's judgement and insights: poor insight/judgment - Mood Mood: Neutral, Other (ok) - Affect Affect: Flat (but improved since admission) - Speech Speech: Appropriate (paucity of speech), Soft - Formal Thought Process Formal Thought Process: Other (concrete) - Suicidal Ideation Suicidal Ideation: No - Homicidal Ideation Homicidal Ideation: No Goal/Treatment Plan - Goal/Treatment Plan Need for Continued Stay: Remain at risks for inpatient hospitalization, Discharge may exacerbated symptoms, Failed transitioning, Severe functional impairment Progress Toward Problem(s) and Goals/Treatment Plan: 1. Risperdal 0.5 mg bid for psychosis 2. Ativan 0.5 mg bid, 1 mg qhs for catatonic symptoms, alcohol use 3. Ativan 2 mg q6hrs prn for agitation/psychosis- required x1 yesterday 4. Geodon 20 mg q6hrs for agitation/psychosis 5. Ambien 5 mg prn qhs 6. Hospitalist consult for eczema and asthma - Cortizone 1% ointment bid - Hydroxyzine 10 mg qid - Duonebs q6hrs- patient refusing, no respiratory complaints 7. Milieu and group therapy 8. Social work consult for social issues and discharge planning 9. Family involvement (?parents)- DOLORES attempted to contact via police (see SW note for details) Attempted to educate the patient about risk/benefits and alternatives of medications, coping strategies (safety plan, suicide prevention), relapse prevention, importance of follow up with psychiatrist and therapist, stay away from drugs/alcohol/smoking, but the patient had limited understanding. Estimated Date of D/C: 02/07/18 (will continue to monitor) - Smoking Cessation Smoking Cessation Initiated: No Reason for not providing: Patient denied tobacco use. <Bárbara García - Last Filed: 02/03/18 16:01> Psychiatric Progress Note - Psychiatric Progress Note DSM 5 Symptoms Update: patient was seen next to the nursing station today, hygiene is improving, patient is more coherent, speech is more fluent, catatonia is improved. Patient obviously has some cognitive limitations, possible borderline intellectual functioning, patient still presented to be disorganized, giggling inappropriately at times, but there is mild improvement for the patient presentation. Patient was to have MRSA in her urine, discussed with medical attending Dr. Navarro 02/03/18, patient does not have any signs of urinary tract infection, patient does not need to be on contact isolation, patient does not need to be seen by infectious disease, does not need to have antibiotics. As per staff patient is compliant with the medications, no side effects observed or reported, no behavioral issues.aims 0, no EPS. impression: Psychosis NOS Rule out schizoaffective disorder Rule out substance-induced psychosis Goal/Treatment Plan - Goal/Treatment Plan Progress Toward Problem(s) and Goals/Treatment Plan: Ativan was discontinued
[2018-02-03] MEDS: Alum-Mag Hydrox-Simethicone Susp (30 mL) PO PRN (21:46)
[2018-02-04] MEDS: Albuterol-Ipratrop 3 mg / 0.5 (3 ml) UD IH SCH ×4 (02:23→19:58)
[2018-02-04] MEDS: Multivitamin With Minerals Tab PO SCH (08:52)
--- NOTE | 2018-02-04 10:08 | PCM.PYCHPN ---
Psychiatric Progress Note - Psychiatric Progress Note Patient seen today, length of contact: 30 minutes Problems Identified/Issues Discussed: I reviewed assessment and recent staff notes. Patient's presentation has been odd and labile but thought process is clearing a little. She has caused her roommate to feel uncomfortable and patient can appear angry. Observed laughing inappropriately to herself and received geodon prn yesterday. Patient is oriented x3 during my visit and grooming is fair. She is not engaged with my questioning and responds passively. Denies any new concerns and flatly indicates that she is "feeling good". Patient appears guarded and preoccupied. Indicates that she slept well and denies side effects, discomfort or pain. She is visible on the unit at times but keeps to herself. Patient remains unpredictable. Diagnostic Results: Bipolar disorder Alcohol use disorder Cocaine use disorder - r/o substance-induced psychosis (cocaine) - r/o schizophrenia - r/o schizoaffective - r/o catatonia Medication Change: No Medical Record Reviewed: Yes Mental Status Examination - Cognitive Function Orientation: Person, Place, Time Memory: Impaired Attention: Poor (but improved from admission) Concentration: Poor (but improved from admission) Association: WNL Fund of Knowledge: Poor - Mood Mood: Neutral, Other (ok) - Affect Affect: Flat (but improved since admission) - Speech Speech: Appropriate (paucity of speech), Soft - Formal Thought Process Formal Thought Process: Other (concrete) - Suicidal Ideation Suicidal Ideation: No - Homicidal Ideation Homicidal Ideation: No Goal/Treatment Plan - Goal/Treatment Plan Need for Continued Stay: Remain at risks for inpatient hospitalization, Discharge may exacerbated symptoms, Failed transitioning, Severe functional impairment Progress Toward Problem(s) and Goals/Treatment Plan: * c/w current tx and plan * Vitals reviewed and noted below: Selected Entries 02/03/18 02/03/18 02/04/18 06:55 16:00 06:45 Temperature 98.5 F 97.9 F Pulse Rate 81 90 110 H Respiratory 20 20 Rate Blood Pressure 116/78 124/75 111/72 * No new weekend lab results thus far. * c/w standing and prn ativan for sytmptoms of catatonia, agitation and alcohol withdrawal. Estimated Date of D/C: 02/07/18 (will continue to monitor)
[2018-02-04] MEDS: Alum-Mag Hydrox-Simethicone Susp (30 mL) PO PRN (11:44)
[2018-02-05] MEDS: Albuterol-Ipratrop 3 mg / 0.5 (3 ml) UD IH SCH ×4 (02:11→19:53)
[2018-02-05] MEDS: Multivitamin With Minerals Tab PO SCH (08:20)
--- NOTE | 2018-02-05 09:54 | PCM.PYCHPN ---
Psychiatric Progress Note - Psychiatric Progress Note Patient seen today, length of contact: 30 minutes Patient Chief Complaint: "feeling good" Problems Identified/Issues Discussed: I reviewed recent staff notes. Patient's presentation continues to be odd, labile and disorganized. She required redirection about proper boundaries during meal time and still requires prns for impulsive behaviors. Patient refused nebulizer treatment on Tuesday. Staff have also observed her talking and giggling to herself. Thought process has demonstrated minimal improvement over the weekend. Patient is oriented x3 during my visit and grooming is fair. She is not engaged with my questioning and still responds passively. Denies any new concerns and flatly indicates that she is "feeling good". Patient appears guarded and preoccupied. Patient denies hallucinations and indicates she talks to herself because she is "going over song lyrics". Patient's thought process is vague and confused, this doesn't appear to be a credible reason. Patient indicates that she slept well and denies side effects, discomfort or pain. She is visible on the unit at times but keeps to herself. Patient remains unpredictable. Diagnostic Results: Bipolar disorder Alcohol use disorder Cocaine use disorder - r/o substance-induced psychosis (cocaine) - r/o schizophrenia - r/o schizoaffective - r/o catatonia Medication Change: Yes (Increased risperdal, added cogentin) Medical Record Reviewed: Yes Mental Status Examination - Cognitive Function Orientation: Person, Place, Time Memory: Impaired Attention: Poor (but improved from admission) Concentration: Poor (but improved from admission) Association: WNL Fund of Knowledge: Poor - Mood Mood: Neutral, Other (ok) - Affect Affect: Flat (but improved since admission) - Speech Speech: Appropriate (paucity of speech), Soft - Formal Thought Process Formal Thought Process: Other (concrete) - Suicidal Ideation Suicidal Ideation: No - Homicidal Ideation Homicidal Ideation: No Goal/Treatment Plan - Goal/Treatment Plan Need for Continued Stay: Remain at risks for inpatient hospitalization, Discharge may exacerbated symptoms, Failed transitioning, Severe functional impairment Progress Toward Problem(s) and Goals/Treatment Plan: * c/w current tx and plan * Increased risperdal to 1 mg po bid and 1 mg HS on 02/05/18 for disorganization and initiated cogentin 1 mg HS for EPS prophylaxis. * Vitals reviewed and noted below: Selected Entries 02/04/18 02/04/18 06:45 16:45 Temperature 97.9 F Pulse Rate 110 H 100 H Respiratory 20 Rate Blood Pressure 111/72 133/72 * No new weekend lab results * c/w standing and prn ativan for symptoms of catatonia, agitation and alcohol withdrawal. Estimated Date of D/C: 02/07/18 (will continue to monitor)
[2018-02-05] MEDS ORDERED: Benzocaine 20% Cream(7 gm) MT PRN (11:20)
[2018-02-06] MEDS: Albuterol-Ipratrop 3 mg / 0.5 (3 ml) UD IH SCH ×4 (01:12→20:34)
[2018-02-06] MEDS: Multivitamin With Minerals Tab PO SCH (08:21)
--- NOTE | 2018-02-06 12:47 | PCM.PYCHPN ---
<Pat Rueda - Last Filed: 02/06/18 14:24> Psychiatric Progress Note - Psychiatric Progress Note Patient seen today, length of contact: 30 minutes Patient Chief Complaint: Good. Is it time for breakfast? Problems Identified/Issues Discussed: Suicide/ homicide prevention, past psychiatric h/o, current psychiatric symptoms , medical problems, risk/benefits and alternatives of medications, medications compliance, coping strategies, substance abuse h/o, relapse prevention, importance of follow up with psychiatrist and therapist, discharge plan. Medical Problems: eczema, asthma, allopecia Diagnostic Results: Vital Signs Temp Pulse Resp BP Pulse Ox 02/03/18 06:55 98.5 F 81 20 116/78 02/02/18 16:00 92 H 136/82 02/02/18 06:55 98.0 F 76 20 126/76 02/01/18 16:00 86 140/95 H 02/01/18 13:25 97.5 F L 02/01/18 07:12 97.9 F 80 20 125/75 02/01/18 03:35 98.0 F 89 20 121/77 02/01/18 03:28 70 17 127/62 99 02/01/18 00:00 78 14 116/74 100 01/31/18 19:39 98.1 F 101 H 19 142/72 97 01/31/18 20:50 01/31/18 20:50 Lab Results 02/01/18 07:15: Thyroxine (T4) 7.7 02/01/18 07:15: RPR Nonreactive 02/01/18 07:15: TSH 3rd Generation 0.37 L 02/01/18 07:15: Fasting Glucose 71, Triglycerides 83, Cholesterol 127 L, LDL Cholesterol Direct 66, HDL Cholesterol 36 02/01/18 01:10: Urine Opiates Screen Negative, Urine Methadone Screen Negative, Ur Barbiturates Screen Negative, Ur Phencyclidine Scrn Negative, Ur Amphetamines Screen Negative, U Benzodiazepines Scrn Negative, U Oth Cocaine Metabols Positive H, U Cannabinoids Screen Negative 02/01/18 01:10: Urine Color Yellow, Urine Appearance Cloudy, Urine pH 6.0, Ur Specific [place] >= 1.030, Urine Protein Negative, Urine Glucose (UA) Negative, Urine Ketones Trace H, Urine Blood Negative, Urine Nitrate Negative, Urine Bilirubin Negative, Urine Urobilinogen 0.2, Ur Leukocyte Esterase Small H, Urine RBC 1 - 3, Urine WBC 2 - 5, Ur Epithelial Cells 4 - 5, Calcium Oxalate Crystal Large, Urine Bacteria Many, Urine Other Mucus 01/31/18 20:50: Alcohol, Quantitative < 10 01/31/18 20:50: Salicylates < 1 L, Acetaminophen < 10.0 L 01/31/18 20:50: Sodium 143, Potassium 4.0, Chloride 108 H, Carbon Dioxide 26, Anion Gap 13, BUN 14, Creatinine 0.7, Est GFR ( Amer) > 60, Est GFR (Non- Af Amer) > 60, Random Glucose 85, Calcium 8.8, Magnesium 2.3 H, Total Bilirubin 0.5, AST 32, ALT 39, Alkaline Phosphatase 61, Total Protein 7.3, Albumin 3.5, Globulin 3.7, Albumin/Globulin Ratio 0.9 L 01/31/18 20:50: WBC 5.6, RBC 3.99, Hgb 11.8 L, Hct 34.7 L, MCV 87.0, MCH 29.6, MCHC 34.0, RDW 14.8 H, Plt Count 264, MPV 10.0, Gran % 43.9 L, Lymph % (Auto) 36.9 H, [place] % (Auto) 10.5 H, Eos % (Auto) 7.6 H, Baso % (Auto) 1.1, Gran # 2.48 , Lymph # (Auto) 2.1, [place] # (Auto) 0.6, Eos # (Auto) 0.4, Baso # (Auto) 0.06 Vital Signs Temp Pulse Resp BP Pulse Ox 02/06/18 07:37 98.0 F 84 20 115/77 02/05/18 18:41 97.6 F 02/05/18 16:09 81 114/74 02/05/18 11:02 97.5 F L 02/05/18 07:46 97.5 F L 64 20 107/66 02/04/18 16:45 100 H 133/72 02/04/18 06:45 97.9 F 110 H 20 111/72 02/03/18 16:00 90 124/75 02/03/18 06:55 98.5 F 81 20 116/78 02/02/18 16:00 92 H 136/82 02/02/18 06:55 98.0 F 76 20 126/76 02/01/18 16:00 86 140/95 H 02/01/18 13:25 97.5 F L 02/01/18 07:12 97.9 F 80 20 125/75 02/01/18 03:35 98.0 F 89 20 121/77 02/01/18 03:28 70 17 127/62 99 02/01/18 00:00 78 14 116/74 100 01/31/18 19:39 98.1 F 101 H 19 142/72 97 Temp Pulse Resp BP Pulse Ox 98.0 F 84 20 115/77 99 02/06/18 07:37 02/06/18 07:37 02/06/18 07:37 02/06/18 07:37 02/01/18 03:28 DSM 5 Symptoms Update: Faiza Lopez is a 27 yo female with a history of bipolar disorder who was brought to the ED by EMS for wandering the streets without pants or underwear on. According to records, the patient told the ER that she took off her pants because she was hot. She then later told the psych nurse that she removed them because she urinated in them. The patient was brought to the ED at [facility] 3 consecutive days earlier this month for bizarre behavior and was discharged each time with outpatient care. Records indicate the patient is homeless. Her UDS was positive for cocaine. The patient was seen by the nurses station today. She has fair grooming, dressed in casual clothing. Patient continues to be observed in the milieu; however, without much group participation. She has been observed to have child- like behavior with inappropriate giggling and speaking only in simple sentences. At times she is wandering the halls talking to herself. The patient does appear to much clearer since admission with improvement of catatonia. At times, she is intrusive (attempted to enter treatment room several times while team was meeting with other patients), but she is easily redirectable. She has been compliant with her medications and is tolerating them without side effects. She is sleeping and eating well. Medication Change: Yes (increased Risperdal) Medical Record Reviewed: Yes Consults ordered or reviewed: none Mental Status Examination - Cognitive Function Orientation: Person, Place, Time Memory: Intact Attention: Poor (but improved from admission) Concentration: Poor (but improved from admission) Association: WNL Fund of Knowledge: Poor Decription of patient's judgement and insights: poor insight/judgment - Mood Mood: Neutral, Other (good) - Affect Affect: Constricted, Flat - Speech Speech: Appropriate (paucity of speech), Soft - Formal Thought Process Formal Thought Process: Other (concrete) - Suicidal Ideation Suicidal Ideation: No - Homicidal Ideation Homicidal Ideation: No Goal/Treatment Plan - Goal/Treatment Plan Need for Continued Stay: Remain at risks for inpatient hospitalization, Discharge may exacerbated symptoms, Failed transitioning, Severe functional impairment Progress Toward Problem(s) and Goals/Treatment Plan: 1. Risperdal 2 mg bid for psychosis 2. Cogentin 1 mg for EPS ppx 3. Ativan 1 mg qhs for catatonic symptoms, alcohol use 4. Ativan 2 mg q6hrs PO/IM prn for agitation/psychosis- required PO x1 yesterday (02/05) 5. Geodon 20 mg PO/IM q6hrs for agitation/psychosis- required PO x1 2 days ago ( 02/04) 6. Ambien 5 mg prn qhs 7. Hospitalist consult for eczema and asthma - Cortizone 1% ointment bid - Hydroxyzine 10 mg qid - Duonebs q6hrs- patient refusing, no respiratory complaints Milieu and group therapy Social work consult for social issues and discharge planning Family involvement (?parents)- SW attempted to contact via police (see SW note for details) Attempted to educate the patient about risk/benefits and alternatives of medications, coping strategies (safety plan, suicide prevention), relapse prevention, importance of follow up with psychiatrist and therapist, stay away from drugs/alcohol/smoking, but the patient had limited understanding. Estimated Date of D/C: 02/07/18 (will continue to monitor) - Smoking Cessation Smoking Cessation Initiated: Yes <Bárbara García - Last Filed: 02/06/18 16:01> Psychiatric Progress Note - Psychiatric Progress Note DSM 5 Symptoms Update: as per report from nursing staff, patient has childlike demeanor, at times talking to herself and smiling to herself, no behavioral incident. Patient tolerates medications well, no side effects observed or reported, discharge plan was discussed today, most likely patient will be discharged tomorrow. Patient tolerates medications well, no side effects observed or reported, aims 0 , no EPS. Impression: Rule out schizophrenia spectrum Rule out substance-induced psychosis Medication Change: Yes Medical Record Reviewed: Yes Consults ordered or reviewed: patient was seen by medical team, cortisol cream was ordered for eczema Mental Status Examination - Cognitive Function Memory: Intact Attention: Poor Concentration: Poor (some improvementsome improvement) Fund of Knowledge: Poor (baseline) Decription of patient's judgement and insights: patient insight and judgment are improving - Mood Mood: Neutral ("I feel better), Other - Affect Affect: Constricted (but more reactive and mood congruent), Flat - Speech Speech: Appropriate, Soft - Formal Thought Process Formal Thought Process: Other Goal/Treatment Plan - Goal/Treatment Plan Need for Continued Stay: Remain at risks for inpatient hospitalization, Discharge may exacerbated symptoms, Severe functional impairment Progress Toward Problem(s) and Goals/Treatment Plan: Risperdal was increased possible discharge tomorrow
[2018-02-07 06:55] VITALS: BP 108/66; PULSE 78; TEMP 97.5
[2018-02-07] MEDS: Albuterol-Ipratrop 3 mg / 0.5 (3 ml) UD IH SCH ×2 (08:23→13:25)
[2018-02-07] MEDS: Multivitamin With Minerals Tab PO SCH (08:26)
--- NOTE | 2018-02-07 14:28 | PCM.PYCHDC ---
Mental Status Examination - Mental Status Examination Orientation: Person, Place, Situation, Time Memory: Intact Mood: Neutral Affect: Broad (and mood congruent) Speech: Appropriate (poverty of speech), Soft Attention: Poor (with much improvement) Concentration: Poor (baseline but with much improvement) Association: WNL Fund of Knowledge: Poor (baseline) Formal Thought Process: No Impairment, Other (patient has concrete thought process, most likely patient has neurocognitive deficits) Description of patient's judgement and insight: Pt has improved insight into mental and medical illness, pt was compliant with medications and unit rules and regulations, pt was going to groups, was calm, cooperative, socially appropriate, no behavioral incidents, no agitation, no aggression. Psychotic Thoughts and Behaviors: Pt denied v/a/t hallucinations, denied paranoid ideations, pt does not appear to be psychotic, and thought process is goal directed. Suicidal Ideation: No Current Homicidal Ideation?: No Plan: pt adamantly denied thoughts of harming self or others denied intent or plan. Discharge Summary - Discharge Note Reason for Hospitalization: patient was admitted for disorganized thoughts and behavior in community, patient was brought in by police for evaluation of bizarre and disorganized behavior, at the same time patient was not aggressive, but was confused. Psychiatric History (includes Medical, Family, Personal Hx): unknown Laboratory Data: 01/31/18 20:50 01/31/18 20:50 Lab Results 02/01/18 07:15: Thyroxine (T4) 7.7 02/01/18 07:15: RPR Nonreactive 02/01/18 07:15: TSH 3rd Generation 0.37 L 02/01/18 07:15: Fasting Glucose 71, Triglycerides 83, Cholesterol 127 L, LDL Cholesterol Direct 66, HDL Cholesterol 36 02/01/18 01:10: Urine Opiates Screen Negative, Urine Methadone Screen Negative, Ur Barbiturates Screen Negative, Ur Phencyclidine Scrn Negative, Ur Amphetamines Screen Negative, U Benzodiazepines Scrn Negative, U Oth Cocaine Metabols Positive H, U Cannabinoids Screen Negative 02/01/18 01:10: Urine Color Yellow, Urine Appearance Cloudy, Urine pH 6.0, Ur Specific [place] >= 1.030, Urine Protein Negative, Urine Glucose (UA) Negative, Urine Ketones Trace H, Urine Blood Negative, Urine Nitrate Negative, Urine Bilirubin Negative, Urine Urobilinogen 0.2, Ur Leukocyte Esterase Small H, Urine RBC 1 - 3, Urine WBC 2 - 5, Ur Epithelial Cells 4 - 5, Calcium Oxalate Crystal Large, Urine Bacteria Many, Urine Other Mucus 01/31/18 20:50: Alcohol, Quantitative < 10 01/31/18 20:50: Salicylates < 1 L, Acetaminophen < 10.0 L 01/31/18 20:50: Sodium 143, Potassium 4.0, Chloride 108 H, Carbon Dioxide 26, Anion Gap 13, BUN 14, Creatinine 0.7, Est GFR ( Amer) > 60, Est GFR (Non- Af Amer) > 60, Random Glucose 85, Calcium 8.8, Magnesium 2.3 H, Total Bilirubin 0.5, AST 32, ALT 39, Alkaline Phosphatase 61, Total Protein 7.3, Albumin 3.5, Globulin 3.7, Albumin/Globulin Ratio 0.9 L 01/31/18 20:50: WBC 5.6, RBC 3.99, Hgb 11.8 L, Hct 34.7 L, MCV 87.0, MCH 29.6, MCHC 34.0, RDW 14.8 H, Plt Count 264, MPV 10.0, Gran % 43.9 L, Lymph % (Auto) 36.9 H, [place] % (Auto) 10.5 H, Eos % (Auto) 7.6 H, Baso % (Auto) 1.1, Gran # 2.48 , Lymph # (Auto) 2.1, [place] # (Auto) 0.6, Eos # (Auto) 0.4, Baso # (Auto) 0.06 Vital Signs Temp Pulse Resp BP Pulse Ox 02/07/18 06:55 97.5 F L 78 20 108/66 02/06/18 07:37 98.0 F 84 20 115/77 02/05/18 18:41 97.6 F 02/05/18 16:09 81 114/74 02/05/18 11:02 97.5 F L 02/05/18 07:46 97.5 F L 64 20 107/66 02/04/18 16:45 100 H 133/72 02/04/18 06:45 97.9 F 110 H 20 111/72 02/03/18 16:00 90 124/75 02/03/18 06:55 98.5 F 81 20 116/78 02/02/18 16:00 92 H 136/82 02/02/18 06:55 98.0 F 76 20 126/76 02/01/18 16:00 86 140/95 H 02/01/18 13:25 97.5 F L 02/01/18 07:12 97.9 F 80 20 125/75 02/01/18 03:35 98.0 F 89 20 121/77 02/01/18 03:28 70 17 127/62 99 02/01/18 00:00 78 14 116/74 100 01/31/18 19:39 98.1 F 101 H 19 142/72 97 Consultations:: List each consultation separately and include: 1. Reason for request. 2. Findings. 3. Follow-up Consultations: patient was seen by medical team, cortisol cream was ordered for eczema see notes for more detailed information Summary of Hospital Course include:: 1. Description of specific treatment plan utilized for patients during their course of treatmen. 2. Summarize the time- course for resolution of acute symptoms and/or regressed behaviors. 3. Describe issues identified and worked on during hospitalization. 4. Describe medication utilized. 5. Describe medical problems identified and treated. 6. Reassessment of suicide risk Summary of Hospital Course: shortly patient is 27 years old -[place] female with unknown previous psychiatric history, patient has multiple emergency room visits, including [place] emergency room 01/22/18, 01/23/18 patient was brought in by police patient tried to smoke grass on the floor, patient was discharged from the emergency room back then. this time patient was brought in by police because patient was wandering in streets, was no close on, in the emergency room patient presented to be disorganized, psychotic, did not make any sense, at the same time patient was able to comprehend basic information about admission as well as treatment plan. fair ADL during my first assessment at the treatment team meeting patient presented with poor personal hygiene, patient completely bald, seems to have alopecia, patient also has eczema and was scratching herself constantly during the interview. patient also presented with psychomotor retardation, patient has tendency to mumble something incoherently, patient very hard to interview. patient reported 1 previous psych admission, about 1-2 months ago in [place] on a psychiatric unit. but was not able to provide any history about medications what she was taking. Patient reported that she has history of bipolar disorder, denied visual, auditory, tactile hallucinations. medical history significant for asthma and eczema. We'll call medical consultation. PT reports smoking marijuana and drinks alcohol. PT reports her last drink was 2 -3 days ago. patient was stabilized on the following medications: Risperdal for psychosis Cogentin for possible EPS Atarax for itchiness Cortisol cream for eczema Patient tolerated medications well, no side effects observed or reported, aims 0 , no EPS. Patient was seen today prior to discharge, patient presented well, reported that she learned a lot from this admission, when was asked what exactly, patient reported that she'll learn not to use drugs and take care of herself. Patient reported that her boyfriend will calm and peace her up, patient is willing to continue her medications and doing well. Over the course of this hospitalization pt was attending groups, pt also had medication management, had therapeutic milieu. Overall pt improved significantly, psychosis improved, patient was not depressed , patient is not anxious, has good appetite and sleep,no behavioral issues, pt s insight improved as well and soon pt deemed to be ready for discharge. At the time of the discharge pt denied been depressed, denied thoughts of harming self or others, denied psychotic symptoms, and pt does not appeared to be psychotic, denied been anxious, pt is not in imminent danger to self or others, will be following up at [facility] 10 am, information about follow up appointment, time and address provided to the pt, it is patient responsibility to follow up with outpatient clinic, PMD as well as specialists (see note for more detailed information). In case pt will need to obtain results of studies pending at discharge pt was provided with contact information of Psychiatric Inpatient unit [phone] as well as Medical Record Department [phone]. Naltrexone treatment is not indicated at this time Counseling about smoking and alcohol cessation provided AA meetings as well as smoking cessation treatment program information was provided by the pt was provided with prescriptions for all of medications (please see medication reconciliation form) Pt was educated about safety plan in case of worsening of symptoms or in case of suicidal or homicidal ideation call 911 or go to the nearest ER, also was educated to take meds as prescribed and stay away from drugs, pt verbalized understanding. - Diagnosis (1) Psychosis Current Visit: Yes Status: Acute Priority: High (2) Cocaine abuse Current Visit: Yes Status: Acute Priority: High - Final Diagnosis (DSM 5) Condition upon Discharge: IMPROVED DSM 5: rule out bipolar disorder with psychosis. Disposition: HOME/ ROUTINE Follow-up Treatment Plan: At the time of the discharge pt denied been depressed, denied thoughts of harming self or others, denied psychotic symptoms, and pt does not appeared to be psychotic, denied been anxious, pt is not in imminent danger to self or others, will be following up at [facility] 10 am, information about follow up appointment, time and address provided to the pt, it is patient responsibility to follow up with outpatient clinic, PMD as well as specialists (see note for more detailed information). In case pt will need to obtain results of studies pending at discharge pt was provided with contact information of Psychiatric Inpatient unit [phone] as well as Medical Record Department [phone]. Naltrexone treatment is not indicated at this time Counseling about smoking and alcohol cessation provided AA meetings as well as smoking cessation treatment program information was provided by the pt was provided with prescriptions for all of medications (please see medication reconciliation form) Pt was educated about safety plan in case of worsening of symptoms or in case of suicidal or homicidal ideation call 911 or go to the nearest ER, also was educated to take meds as prescribed and stay away from drugs, pt verbalized understanding. 7th grade social studies teacher tried to contact patient family, called police for visit,no response. Prescriptions/Medication Reconciliation: Benzocaine 20% [Orajel Pm Maximum Strength] 1 gm MT QID PRN #1 tube PRN Reason: Pain, Mild (1-3) Benztropine [Cogentin] 1 mg PO HS #14 tab Hydrocortisone 1% Oint [Cortizone 1% Oint] 2 gm TOP BID #1 tube hydrOXYzine HCl [Atarax] 10 mg PO QID #32 tab Multimineral/Multivitamin [Therapeutic-M Tab] 1 tab PO 0800 #14 tab risperiDONE [RisperDAL Tab] 2 mg PO AMHS #30 tab - Smoking Cessation Smoking Cessation Medication prescribed: No Reason for not providing: patient denied smoking - Antipsychotic Medications Pt discharged on 2 or more routine antipsychotic medications: No
== END 2018-02-07 14:26 | disposition home or self-care (01) | DRG 897 ==
LOC: ED 19:30 → ERH 02-01 00:16 → MERGE 02-01 00:16 → PSYC 02-01 03:33
PROVIDERS: ADMIT Psychiatry & Neurology Psychiatry; ATTEND Psychiatry & Neurology Psychiatry
PROC: GZ3ZZZZ Medication Management (ICD-10-PCS; principal; 2018-02-01)
DX: F14.159 Cocaine abuse with cocaine-induced psychotic disorder, unspecified (principal); F31.9 Bipolar disorder, unspecified; F12.90 Cannabis use, unspecified, uncomplicated; L30.9 Dermatitis, unspecified; J45.909 Unspecified asthma, uncomplicated; L65.9 Nonscarring hair loss, unspecified; Z59.0 Homelessness; F17.200 Nicotine dependence, unspecified, uncomplicated; Z91.83 Wandering in diseases classified elsewhere